=== PATIENT | male | born 1970 | race Caucasian/White ===

== ENCOUNTER 2019-04-08 04:37 | Emergency (ER) | payer BC ==
[~2019-04-08] VITALS: Ht 175.3 cm; Wt 107.7 kg
[2019-04-08 08:23] VITALS: BP 135/85
== END 2019-04-08 08:23 | disposition home or self-care (01) ==
LOC: ED 04:37
DX: R10.816 Epigastric abdominal tenderness (principal); R11.2 Nausea with vomiting, unspecified
CPT/HCPCS: J1885